=== PATIENT | male | born 1990 | race Caucasian/White ===

== ENCOUNTER 2022-02-16 09:14 | Emergency (ER) | payer OTHER, MEDICARE, SELFPAY ==
[2022-02-16 09:19] VITALS: BP 124/86; PULSE 88; RESP 18; TEMP 36.7; O2SAT 98; BMI 31.2
--- NOTE | 2022-02-16 09:33 | ED.GENADULT ---
HPI - General Adult General Chief complaint: Nausea/Vomiting Stated complaint: Sore throat, nausea Time Seen by Provider: 02/16/22 09:28 Source: patient Mode of arrival: ambulatory Limitations: no limitations History of Present Illness HPI narrative: 31-year-old male coming in today complaining of a sore throat that is going on day 3 now. He denies any fevers. No cough. No body aches. No headache or blurry vision. He has difficulty swallowing because of the discomfort. He states that this is increasing his anxiety. He does have a history of anxiety he takes sertraline and lorazepam. He slept very poorly last night because he was uncomfortable. He is not having any drooling or inability to swallow he just finds it uncomfortable. No abdominal discomfort. No sick contacts that he is aware of. Related Data Home Medications Medication Instructions Recorded Confirmed ergocalciferol (vitamin D2) 1,250 02/16/22 mcg (50,000 unit) capsule lorazepam 0.5 mg tablet mg 02/16/22 sertraline 50 mg tablet mg 02/16/22 Previous Rx's Medication Instructions Recorded nirmatrelvir 300 mg (150 mg x See Rx Instructions PO .COMPLEX 02/16/22 2)-ritonavir 100 mg tablet (EUA) #30 tabs (Paxlovid 300 mg () Allergies Allergy/AdvReac Type Severity Reaction Status Date / Time No Known Drug Allergies Allergy Verified 02/16/22 09:25 Review of Systems Status of ROS: Reports: 10 or more systems reviewed and unremarkable except as noted in History and below PFSH PFS Social History Smoking Status: Never smoker Do you use any of these nicotine containing products: None Second hand tobacco smoke exposure: No How often do you have a drink containing alcohol: never AUDIT-C Alcohol total score: 0 Non-prescribed substance use: denies use service: No Exam Narrative: Exam Narrative: Well-nourished well-developed patient who appears quite anxious. Alert and oriented. Answers questions appropriately. Patient speaks in full sentences without needing to catch their breath. Speech is not slurred or pressured. Voice sounds normal. HEENT: Normocephalic atraumatic. Pupils are equally round reactive to light. Extraocular muscles are intact. Conjunctivae are moist without any icterus noted. Moist mucous membranes. Posterior pharynx appears irritated but there is no swollen tonsils, no exudates present, no ulcerations noted. Neck is soft without any lymphadenopathy or thyromegaly. No masses are appreciated. TMs are clear bilaterally. Cardiovascular: Heart is regular rate and rhythm S1 and S2 are present without any murmurs. Lungs: Clear to auscultation bilaterally no wheezes rhonchi or rales are appreciated. Patient takes deep breaths without any discomfort. Skin: Well perfused without any obvious rashes. Const: Vital Signs, click to edit/add: Vital Signs - 24 hr 02/16/22 09:19 Temperature 98.0 F Pulse Rate [Right Pulse Oximeter] 88 Respiratory Rate 18 Blood Pressure [Le ft Upper Arm] 124/86 Pulse Oximetry 98 Oxygen Delivery Me thod Room Air Course Course Hospital Course: Patient was tested for mono, strep, influenza and COVID. COVID-19 positive. Vital Signs Vital signs: Initial Vital Signs Temperature 98.0 F 02/16/22 09:19 Temperature Source Temporal Artery Scan 02/16/22 09:19 Pulse Rate 88 02/16/22 09:19 Respiratory Rate 18 02/16/22 09:19 Blood Pressure 124/86 02/16/22 09:19 Blood Pressure Mean 98 02/16/22 09:19 Blood Pressure Position Sitting 02/16/22 09:19 Pulse Oximetry 98 02/16/22 09:19 Oxygen Delivery Method 02/16/22 09:19 Vital Signs Temperature 98.0 F 02/16/22 09:19 Pulse Rate 88 02/16/22 09:19 Respiratory Rate 18 02/16/22 09:19 Blood Pressure 124/86 02/16/22 09:19 Pulse Oximetry 98 02/16/22 09:19 Oxygen Delivery Method 02/16/22 09:19 Temperature 98.0 F 02/16/22 09:19 Pulse Rate 88 02/16/22 09:19 Respiratory Rate 18 02/16/22 09:19 Blood Pressure 124/86 02/16/22 09:19 Pulse Oximetry 98 02/16/22 09:19 Oxygen Delivery Method 02/16/22 09:19 Medical Decision Making MDM Narrative Medical decision making narrative: 31-year-old male with COVID-19. Patient is not vaccinated he, therefore does qualify for Paxlovid. We discussed risks and benefit of this medication and patient would feel more comfortable taking it. Does not interact with his sertraline or lorazepam. Creatinine was checked prior to discharge and was within normal limits. We discussed reasons for follow-up and quarantine restrictions. Medical Records Medical records reviewed: Yes I reviewed the patient's medical records Lab Data Lab results reviewed: Yes I reviewed the patient's lab results Labs: Lab Results 02/16/22 02/16/22 02/16/22 Range/Units 09:40 09:40 09:45 Creatinine (0.5-1.5) mg/dL Estimated Creat Clear Estimated GFR ml/min SARS-CoV-2 (PCR) POSITIVE SARS-CoV-2 A (Negative) Monoscreen Negative (Negative) Influenza Type A (PCR) Negative PCR FLU A (Negative) Influenza Type B (PCR) Negative PCR FLU B (Negative) Group A Strep DNA NOT DETECTED (No Detected) 02/16/22 Range/Units 09:45 Creatinine 1.3 (0.5-1.5) mg/dL Estimated Creat Clear 90.37 Estimated GFR 75 ml/min SARS-CoV-2 (PCR) (Negative) Monoscreen (Negative) Influenza Type A (PCR) (Negative) Influenza Type B (PCR) (Negative) Group A Strep DNA (No Detected) Discharge Plan Discharge Clinical Impression: COVID-19 Patient Disposition: Home, Self-Care Condition: Stable Additional Instructions: Stay well hydrated and get plenty of rest. Quarantine yourself for 10 days starting on the 1st day that your symptoms started. Alternatively you can quarantine for 5 days as long as you are completely asymptomatic, have a negative at home antigen test and can wear a tight fitting N95 mask for a total of 10 days. Prescriptions: New Paxlovid (EUA) 300 mg (150 mg x 2)-100 mg tablet See Rx Instructions .ROUTE .COMPLEX Qty: 30 0RF Rx Instructions: take TWO 150 mg tablets of nirmatrelvir with ONE 100 mg tablet of ritonavir twice daily for 5 days No Action lorazepam 0.5 mg tablet Label Comments: TAKE 1 TABLET BY MOUTH TWICE DAILY NEEDED FOR ANXIETY ergocalciferol (vitamin D2) 1,250 mcg (50,000 unit) capsule Label Comments: TAKE ONE CAPSULE BY MOUTH ONCE A WEEK sertraline 50 mg tablet Label Comments: TAKE 1 TABLET BY MOUTH DAILY Stand Alone Forms: [employer] Info Instructions
--- NOTE | 2022-02-16 09:47 | ED.NURSE ---
pt [employer] fund[employer] swab for covid and strep swab done. lab here drawing blood.
[2022-02-16 10:06] LABS: Mono Screen* Negative (Negative)
[2022-02-16 10:23] LABS: Strep A DNA Probe* NOT DETECTED (No Detected)
[2022-02-16 10:36] LABS: PCR FLU A Negative PCR FLU A (Negative); PCR FLU B Negative PCR FLU B (Negative)
[2022-02-16 10:38] LABS: SARS PCR* POSITIVE SARS-CoV-2 (Negative)
[2022-02-16 12:02] LABS: Creatinine* 1.3 mg/dL (0.5-1.5); Est. Creatinine Clearance* 90.37; Estimated Glomerular Filt Rate 75 ml/min
== END 2022-02-16 12:21 | disposition home or self-care (01) ==
PROVIDERS: Emergency Provider Family Medicine; PCP Family Medicine
DX: U07.1 COVID-19 (principal)
CPT/HCPCS: 36415; 82565; 86308; 87502; 87635; 87651; 99283; 99284

== ENCOUNTER 2024-05-02 08:00 | Emergency (ER) | payer MEDICARE, BC, SELFPAY ==
[2024-05-02 08:04] VITALS: BP 122/89; PULSE 86; RESP 18; TEMP 36.6; O2SAT 94; BMI 31.9
--- NOTE | 2024-05-02 08:13 | CT_ITS ---
Patient: GIANNA ROSAS Facility:?[facility] Patient ID:?[id number] Site Patient ID:?[id number]. Site :?1990 Study:?CT-Facial WITHOUT-05/02/2024 8:48:53 AM Ordering Physician:Odin Clayton Final Report: Indication: Injury Technique: CT examination of the facial bones was performed. Imaging was acquired in the axial plane. Sagittal and coronal reformatted imaging was performed. Contrast was not administered. The examination was performed from above the frontal sinuses through the bottom of the mandible. Comparison: None Findings: The osseous structures are intact. There is no fracture, dislocation or destructive process. The globes appear normal. No radiopaque foreign body. No significant paranasal sinus mucosal inflammatory disease. The globes are intact. Again noted is asymmetric dilation of the mid body and frontal horn of the left lateral ventricle relative to the right. This is probably congenital. Follow up evaluation by MRI is recommended in the nonacute setting if this is not a known abnormality Impression: No visible facial region fracture Please note that all CT scans at this facility use dose modulation, iterative reconstruction, and/or weight-based dosing when appropriate to reduce radiation dose to as low as reasonably achievable. Dictated by Omar Bravo MD @ 05/02/2024 9:09:22 AM Signed by:?Omar Bravo MD @05/02/2024 9:09:22 AM (Electronic Signature)
--- NOTE | 2024-05-02 08:14 | CT_ITS ---
Patient: GIANNA ROSAS Facility:?[facility] Patient ID:?[id number] Site Patient ID:?[id number]. Site :?1990 Study:?CT-Head W/O-05/02/2024 8:47:36 AM Ordering Physician:Odin Clyaton Final Report: INDICATION: Injury COMPARISON: None TECHNIQUE: CT examination of the head was performed as axial sections without intravenous contrast. Images were obtained from the vertex of the skull through the skull base. Please note that all CT scans at this facility use dose modulation, iterative reconstruction, and/or weight-based dosing when appropriate to reduce radiation dose to as low as reasonably achievable. FINDINGS: The brain shows no sign of mass lesion, mass effect, hemorrhage, or edema. There is asymmetric dilation of the left lateral ventricle. This is primarily in the body and frontal horn of the left lateral ventricle. This is likely congenital and unlikely to be acute or related to acute trauma. If this is not a known abnormality, I recommend this be formally evaluated by MRI in the nonacute care setting. Sulci are of normal caliber for patient age. Ventricles are unremarkable other than the left lateral ventricle as above. The visualized portions of the orbits are normal in appearance. The osseous structures are normal in their appearance with no sign of abnormality in the skull base or calvarium. IMPRESSION: 1. No acute posttraumatic finding. 2. Asymmetric dilation of the left lateral ventricle relative to the right, especially in the midbody and anterior horn. This is likely congenital and is unlikely to be posttraumatic. If this is not a known abnormality, recommend that this be formally evaluated by MRI in the nonacute care setting. Please note that all CT scans at this facility use dose modulation, iterative reconstruction, and/or weight-based dosing when appropriate to reduce radiation dose to as low as reasonably achievable. Dictated by Omar Bravo MD @ 05/02/2024 9:03:13 AM Signed by:?Omar Bravo MD @05/02/2024 9:03:13 AM (Electronic Signature)
--- NOTE | 2024-05-02 08:14 | CT_ITS ---
Patient: GIANNA ROSAS Facility:?[facility] Patient ID:?[id number] Site Patient ID:?[id number]. Site :?1990 Study:?CT-Spine Cervical WITHOUT-05/02/2024 8:49:17 AM Ordering Physician:Odin Clayton Final Report: INDICATION: Trauma COMPARISON: None TECHNIQUE: CT examination of the cervical spine is performed without contrast using spiral technique. Thin axial, sagittal and coronal reconstructions were made. Please note that all CT scans at this facility use dose modulation, iterative reconstruction, and/or weight-based dosing when appropriate to reduce radiation dose to as low as reasonably achievable. FINDINGS: : Bone mineral density appears normal. Reversed cervical curvature which is due to muscle spasm or positioning. There is no lytic or blastic lesion there is no acute fracture, dislocation or destructive process. Degenerative changes noted, mainly mid and lower IMPRESSION: Reversed curvature likely due to muscle spasm or positioning. No acute fracture, dislocation or destructive process. Degenerative changes. Please note that all CT scans at this facility use dose modulation, iterative reconstruction, and/or weight-based dosing when appropriate to reduce radiation dose to as low as reasonably achievable. Dictated by Omar Bravo MD @ 05/02/2024 9:06:02 AM Signed by:?Omar Bravo MD @05/02/2024 9:06:02 AM (Electronic Signature)
--- NOTE | 2024-05-02 08:26 | ED.GENADULT ---
HPI - General Adult General Date Seen: 05/02/24 Chief complaint: Syncope/Fainted Stated complaint: Fell at home, face injury Time Seen by Provider: 05/02/24 08:04 Source: patient and family Mode of arrival: ambulatory Limitations: no limitations History of Present Illness HPI narrative: Patient is a 33-year-old male here with his parents with a history of cerebral palsy presenting to the emergency department after a fall. He states he tripped over his feet and landed face 1st onto cement. His parents helped him up and brought him into the bathroom to clean up and then noticed he passed out for a short amount of time. He then woke up and seemed to go back to normal rather quickly. They state he is currently acting normally. They were concerned about a concussion. Patient denies headache, neck pain, vision changes, weakness, numbness, chest pain, shortness of breath, lightheadedness, dizziness, abdominal pain. States he only is having tenderness to his nose in his lips, which is what hit the ground. Also has abrasion to his left knee. No tenderness noted anywhere else. Last tetanus shot was 1 month ago. Related Data Home Medications ?Medication ?Instructions ?Recorded ?Confirmed ergocalciferol (vitamin D2) 1,250 1,250 mcg 02/16/22 mcg (50,000 unit) capsule lorazepam 0.5 mg tablet mg 02/16/22 sertraline 50 mg tablet 50 mg 02/16/22 pantoprazole 40 mg tablet,delayed 40 mg PO DAILY 05/02/24 05/02/24 release Previous Rx's ?Medication ?Instructions ?Recorded nirmatrelvir 300 mg (150 mg See Rx Instructions PO .COMPLEX 02/16/22 x2)-ritonavir 100 mg tablet,dose #30 tabs pack (Paxlovid) Allergies Allergy/AdvReac Type Severity Reaction Status Date / Time No Known Drug Allergies Allergy Verified 02/16/22 09:25 Review of Systems Status of ROS: Reports: 10 or more systems reviewed and unremarkable except as noted in History and below PFSH PFSH Social History Smoking Status: Never smoker Do you use any of these nicotine containing products: None Second hand tobacco smoke exposure: No How often do you have a drink containing alcohol: never AUDIT-C Alcohol total score: 0 Non-prescribed substance use: denies use service: No Exam Narrative: Exam Narrative: Const: Well-nourished, Well-developed, in no distress Eyes: PERRL, no conjunctival injection, and symmetrical lids HENT: Abrasions noted to nose and lips. No palpable skull fractures, no tenderness noted to sinuses. Neck: Symmetric, trachea midline, No thyromegaly. CVS: RRR, No murmurs or gallops. Peripheral pulses 2+ and equal in all extremities RESP: Unlabored respiratory effort. Clear to auscultation bilaterally. GI: Nontender/Nondistended, No rebound or guarding. MSK:Extremities w/o deformity, Normal Active ROM, no midline neck tenderness, no joint or long bone tenderness Skin: Warm, Dry. No rashes or lesions. Neuro: Normal Muscle tone, No focal neurological deficits. Psych: Awake, Alert, & Oriented x3. Appropriate mood and affect. Const: Vital Signs, click to edit/add: Vital Signs - 24 hr 05/02/24 08:04 Temperature 97.8 F Pulse Rate [Right Pulse Oximeter] 86 Respiratory Rate 18 Blood Pressure [Ri ght Upper Arm] 122/89 Pulse Oximetry 94 Oxygen Delivery Me thod Room Air Course Vital Signs Vital signs: Initial Vital Signs Temperature 97.8 F 05/02/24 08:04 Temperature Source Temporal Artery Scan 05/02/24 08:04 Pulse Rate 86 05/02/24 08:04 Respiratory Rate 18 05/02/24 08:04 Blood Pressure 122/89 05/02/24 08:04 Blood Pressure Mean 100 05/02/24 08:04 Blood Pressure Position Sitting 05/02/24 08:04 Pulse Oximetry 94 05/02/24 08:04 Oxygen Delivery Method Room Air 05/02/24 08:04 Vital Signs Temperature 97.8 F 05/02/24 08:04 Pulse Rate 86 05/02/24 08:04 Respiratory Rate 18 05/02/24 08:04 Blood Pressure 122/89 05/02/24 08:04 Pulse Oximetry 94 05/02/24 08:04 Oxygen Delivery Method Room Air 05/02/24 08:04 Temperature 97.8 F 05/02/24 08:04 Pulse Rate 86 05/02/24 08:04 Respiratory Rate 18 05/02/24 08:04 Blood Pressure 122/89 05/02/24 08:04 Pulse Oximetry 94 05/02/24 08:04 Oxygen Delivery Method Room Air 05/02/24 08:04 Medical Decision Making MDM Narrative Medical decision making narrative: Patient is a 33-year-old male with cerebral palsy presenting after a fall and syncopal episode. Will order CT scan of the head, facial bones, neck. Was doing EKG due to syncopal episode. As he is but otherwise back to normal and having no other symptoms are not believe further lab workup is necessary. EKG shows no concerning abnormalities. Syncope unlikely to be from arrhythmia. CT scans all showed no acute concerning abnormalities. CT scan head does show 1 of his lateral ventricles is larger than the other. This is likely congenital but his parents cannot say for certain if it was or not. They will follow up with primary care provider and if it was not previously known will do an MRI. Syncope likely was vasovagal after the fall. He is otherwise doing well and will be discharged at this time. Imaging Data CT scan head: Attestation: I have reviewed the pertinent imaging results. Radiologist's impression: 1. No acute posttraumatic finding. 2. Asymmetric dilation of the left lateral ventricle relative to the right, especially in the midbody and anterior horn. This is likely congenital and is unlikely to be posttraumatic. If this is not a known abnormality, recommend that this be formally evaluated by MRI in the nonacute care setting. Please note that all CT scans at this facility use dose modulation, iterative reconstruction, and/or weight-based dosing when appropriate to reduce radiation dose to as low as reasonably achievable. Dictated by Omar Bravo MD @ 05/02/2024 9:03:[address] scan cervical spine: Attestation: I have reviewed the pertinent imaging results. Radiologist's impression: Reversed curvature likely due to muscle spasm or positioning. No acute fracture, dislocation or destructive process. Degenerative changes. Please note that all CT scans at this facility use dose modulation, iterative reconstruction, and/or weight-based dosing when appropriate to reduce radiation dose to as low as reasonably achievable. Dictated by Omar Bravo MD @ 05/02/2024 9:06:[address] scan facial bones: Attestation: I have reviewed the pertinent imaging results. Radiologist's impression: No visible facial region fracture Please note that all CT scans at this facility use dose modulation, iterative reconstruction, and/or weight-based dosing when appropriate to reduce radiation dose to as low as reasonably achievable. Dictated by Omar Bravo MD @ 05/02/2024 9:09:22 AM ECG Data Attestation: I personally reviewed and interpreted this ECG as follows: Prior ECG tracings: not available for review Interpretation: Normal sinus rhythm rate 69 beats per minute, normal intervals, normal axis, no ST or T-wave abnormalities. Discharge Plan Discharge Clinical Impression: Abrasion of face Qualifiers: Encounter type: initial encounter Qualified Code(s): S00.81XA - Abrasion of other part of head, initial encounter Closed head injury Qualifiers: Encounter type: initial encounter Qualified Code(s): S09.90XA - Unspecified injury of head, initial encounter Syncope Qualifiers: Syncope type: unspecified Qualified Code(s): R55 - Syncope and collapse Patient Disposition: Home, Self-Care Condition: Stable Instructions: Syncope (DC), Head Injury (DC) Additional Instructions: CT scan does show a hit left lateral ventricle within the brain that is larger than right. Talked to primary care provider. If this was a previously known congenital issue no further workup is needed. If it was unknown previously then have an outpatient MRI scheduled. Prescriptions: No Action lorazepam 0.5 mg tablet Patient Comments: TAKE 1 TABLET BY MOUTH TWICE DAILY NEEDED FOR ANXIETY ergocalciferol (vitamin D2) 1,250 mcg (50,000 unit) capsule 1,250 mcg Patient Comments: TAKE ONE CAPSULE BY MOUTH ONCE A WEEK sertraline 50 mg tablet 50 mg Patient Comments: TAKE 1 TABLET BY MOUTH DAILY Paxlovid 300 mg (150 mg x 2)-100 mg tablet See Rx Instructions .ROUTE .COMPLEX Qty: 30 0RF Rx Instructions: take TWO 150 mg tablets of nirmatrelvir with ONE 100 mg tablet of ritonavir twice daily for 5 days pantoprazole 40 mg tablet,delayed release (DR/EC) 40 mg PO DAILY Follow Up/Referrals: Omar Nava MD [Primary Care Provider] - Stand Alone Forms: [facility] Info Instructions
--- NOTE | 2024-05-02 09:23 | ED.NURSE ---
Nose cleaned and bandage applied. Pt tolerated well.
== END 2024-05-02 09:30 | disposition home or self-care (01) ==
PROVIDERS: Emergency Provider Student in an Organized Health Care Education/Training Program; PCP Family Medicine
DX: S09.90XA Unspecified injury of head, initial encounter (principal); S00.81XA Abrasion of other part of head, initial encounter; R55 Syncope and collapse; W01.198A Fall on same level from slipping, tripping and stumbling with subsequent striking against other object, initial encounter
CPT/HCPCS: 70450; 70486; 72125; 93005; 99282; 99284; 99285

== ENCOUNTER 2024-05-12 07:04 | Outpatient (CLI) | payer MEDICARE, BC, SELFPAY ==
--- NOTE | 2024-05-12 07:15 | CRLHL7_ITS ---
For Patients: As a result of the Cures Act, medical imaging exams and procedure reports are released immediately into your electronic medical record. You may view this report before your referring provider. If you have questions, please contact your health care provider. Indication: Syncope. Technique: Multiplanar, multisequence MRI of the brain was performed without and with intravenous contrast. Contrast: 20 cc Dotarem. Comparison: CT head 05/02/2024. Findings: Imaging is suboptimal due to lack of T2 FLAIR imaging performed. Moderate thinning of the posterior body of the corpus callosum. The pituitary gland and clivus appear intact. Craniocervical junction is preserved. There is no restricted diffusion. No intracranial hemorrhage. There is asymmetric dilatation of the body of the left lateral ventricle. There is no intracranial mass, abnormal mass-effect or midline shift identified. No abnormal enhancement. Major intracranial vascular flow voids appear grossly intact. Both globes are preserved. Impression: 1. No acute intracranial process. 2. Asymmetric dilatation of the left lateral ventricle as well as moderate posterior body corpus callosal atrophy favored to represent sequela of chronic or congenital insult. Dictated by Manny Collier MD @ 05/15/2024 11:49:21 AM (Electronically Signed)
== END 2024-05-12 07:05 | disposition home or self-care (01) ==
PROVIDERS: PCP Family Medicine; Visit Provider Family Medicine
DX: R55 Syncope and collapse (principal)
CPT/HCPCS: 70553; A9575